=== PATIENT | male | born 1995 | race Caucasian/White ===

== ENCOUNTER 2021-07-25 19:26 | Emergency (ER) | payer OTHER ==
[~2021-07-25] VITALS: Ht 167.6 cm; Wt 93.0 kg
[2021-07-25] MEDS ORDERED: KETOROLAC TROMETH 30 MG/ML 1ML VIAL IM ONE (23:15)
[2021-07-26 00:23] VITALS: BP 121/65
[2021-07-26 00:34] LABS: Urine Bacteria NONE SEEN /hpf (None Seen); Urine Blood Negative /uL (Negative); Urine Mucus FEW (None Seen); Urine Specific Gravity 1.029 (1.001-1.035); Urine WBC 1 /hpf (0 - 3)
== END 2021-07-26 00:38 | disposition left against medical advice (07) ==
LOC: ER 19:26
DX: N43.3 Hydrocele, unspecified (principal); L72.0 Epidermal cyst; Z53.29 Procedure and treatment not carried out because of patient's decision for other reasons
CPT/HCPCS: 76870; 81001; 96372; 99284; J1885